=== PATIENT | male | born 1960 | race Caucasian/White ===

== ENCOUNTER → 2020-03-04 10:24 | Outpatient (CLI) | payer BC, SELFPAY ==
--- NOTE | 2020-03-04 10:29 | STEWCON_ITS ---
Reason For Study: Chest Pain Stress Results Protocol: Abe Protocol WITH DEFINITY Maximum Predicted HR: 163 bpm Target HR: 139 bpm % Maximum Predicted HR: 82 % DurationHeart Rate Stage (mm:ss) (bpm) BP Comment Baseline 80 122/80No Chest Pain; 4 ML Diluted Definity Abe Protocol Stage I 3:00 107 158/82No Chest Pain Abe Protocol Stage II 3:00 116 150/82No Chest Pain Abe Protocol Stage III 4:00 134 170/88No Chest Pain; Stage Held D/T Leg Pain Recovery 85 128/78No Chest Pain Stress Duration: 10:00 mm:ss Maximum Stress HR: 134 bpm METS: 10 Baseline Echocardiogram Findings Stress Echo Wall motion Data Resting WM Intermediate WM Stress WM Interpretation Summary 59-year-old man with a history of diabetes. Stress protocol: Resting EKG demonstrates normal sinus rhythm with a rate of 68 bpm normal intervals are noted resting blood pressure 122/80 mmHg. The patient exercised according to regular Abe protocol for a total duration of 10 minutes. Patient completed 1 minute into stage IV of the Abe protocol. The maximum heart rate attained was 139 bpm which was 85% of max impacted heart rate the maximum workload was 10.1 metabolic equivalents. At rest and with peak exercise there were upsloping ST changes only were noted with no meet the criteria for ischemia. No clinical angina was noted. Stress echocardiogram. Resting echocardiogram demonstrate ejection fraction of 65% with Definity enhancement. No wall motion abnormalities were noted. At peak exercise there was thickening of all [place] contraction of left ventricular cavity size and peaking of ejection fraction of 75%. No wall motion abnormalities were noted. Conclusion: Exercise stress echocardiogram with no evidence of ischemia at a high workload. Excellent functional capacity. No ischemia present. Ordering Physician: Klaus Garza Referring Physician: Javi Smith Performed By: Leodan Rai RCS
== END ==
PROVIDERS: PCP Internal Medicine; Referring Provider Internal Medicine; Visit Provider Internal Medicine
DX: R07.9 Chest pain, unspecified (principal)
CPT/HCPCS: 93017; 93350; Q9957; A4216; C8928